=== PATIENT | female | born 1985 | race Two or more races ===

== ENCOUNTER → 2021-12-29 | Emergency (ER) | payer OTHER ==
[~2021-12-29] VITALS: Ht 167.6 cm; Wt 60.8 kg
[~2021-12-29] MED LIST: ANUSOL-HC30 G2 RECTAL; ANUSOL-HC30 G2 TOP; DULCOLAX STOOL100 M1 PO
== END | disposition home or self-care (01) ==
LOC: ER 08:21
DX: K62.5 Hemorrhage of anus and rectum (principal)

== ENCOUNTER 2023-03-23 10:38 | Emergency (ER) | payer OTHER ==
[~2023-03-23] VITALS: Ht 167.6 cm; Wt 59.0 kg
== END 2023-03-23 12:53 | disposition home or self-care (01) ==
LOC: ER 10:38
DX: J10.1 Influenza due to other identified influenza virus with other respiratory manifestations (principal); R53.81 Other malaise; Z20.822 Contact with and (suspected) exposure to COVID-19

== ENCOUNTER 2023-05-02 05:47 | Emergency (ER) | payer OTHER ==
[~2023-05-02] VITALS: Ht 167.6 cm; Wt 58.5 kg
[2023-05-02] MEDS ORDERED: KETOROLAC TROMETHAMINE 60 MG VIAL IM ONE (06:15)
== END 2023-05-02 06:19 | disposition home or self-care (01) ==
LOC: ER 05:47
DX: M94.0 Chondrocostal junction syndrome [Tietze] (principal)

== ENCOUNTER 2023-06-22 18:49 | Emergency (ER) | payer OTHER ==
[~2023-06-22] VITALS: Ht 167.6 cm; Wt 59.0 kg
[2023-06-22] MEDS ORDERED: GUAIFENESIN/DEXTROMETHORPHAN 100 MG/5 ML ML PO ONE (20:00)
[2023-06-22] MEDS ORDERED: DEXAMETHASONE SODIUM PHOSPHATE 4 MG/ML VIAL IM ONE (20:00)
[2023-06-22 20:26] LABS: HEMATOCRIT 34.1 % (36.0-45.00); HEMOGLOBIN 11.1 g/dL (12.0-15.00); MEAN CELL VOLUME 82.1 fL (80.00-100.00); MEAN CORPUSCULAR HEMOGLOBIN 26.6 pg (27.00-32.0); MEAN CORPUSCULAR HGB CONC 32.4 g/dl (32.0-36.0); PLATELET COUNT 348 K/uL (150-450); RED BLOOD COUNT 4.15 M/uL (4.00-6.00); RED CELL DISTRIBUTION WIDTH 14.4 % (11.5-14.5)
[2023-06-22] MEDS ORDERED: QC TUSSIN DM L118 ML PO (21:52)
[2023-06-22] MEDS ORDERED: BENZONATATE150 MG PO (21:52)
== END 2023-06-22 22:14 | disposition home or self-care (01) ==
LOC: ER 18:49
PROVIDERS: Nurse Practitioner Family
DX: J06.9 Acute upper respiratory infection, unspecified (principal)
CPT/HCPCS: 36415; 96372; 99282; J1100

== ENCOUNTER 2023-11-02 20:17 | Emergency (ER) | payer OTHER ==
[~2023-11-02] VITALS: Ht 167.6 cm; Wt 61.2 kg
[~2023-11-02 20:17] MED LIST changes: +BENZONATATE150 MG PO; +QC TUSSIN DM L118 ML PO
[2023-11-02] MEDS ORDERED: CETIRIZINE HCL 5 MG/5 ML ML PO STA (23:02)
[2023-11-02] MEDS ORDERED: GUAIFENESIN/DEXTROMETHORPHAN 5ML BLIST.PACK PO STA (23:03)
[2023-11-02] MEDS ORDERED: CETIRIZINE HCL 5MG/5ML BLIST.PACK PO ONE (23:35)
[2023-11-02] MEDS ORDERED: GUAIFENESIN/DEXTROMETHORPHAN 5ML BLIST.PACK PO ONE (23:35)
[2023-11-03] MEDS ORDERED: VENTOLIN HFA18 GM IH (03:05)
[2023-11-03] MEDS ORDERED: ZYNCOF 20-400120 ML PO (03:05)
== END 2023-11-03 03:55 ==
LOC: ER 20:19
DX: J06.9 Acute upper respiratory infection, unspecified (principal); Z20.822 Contact with and (suspected) exposure to COVID-19

== ENCOUNTER 2024-01-09 14:03 | Emergency (ER) | payer OTHER ==
[~2024-01-09] VITALS: Ht 167.6 cm; Wt 60.8 kg
[~2024-01-09 14:03] MED LIST changes: +VENTOLIN HFA18 GM IH; +ZYNCOF 20-400120 ML PO
[2024-01-09] MEDS ORDERED: TRAMADOL HCL 50 MG TABLET PO STA (16:33)
== END 2024-01-09 20:51 | disposition home or self-care (01) ==
LOC: ER 14:05
DX: S52.122A Displaced fracture of head of left radius, initial encounter for closed fracture (principal); W18.31XA Fall on same level due to stepping on an object, initial encounter; Y93.89 Activity, other specified; Y92.89 Other specified places as the place of occurrence of the external cause

== ENCOUNTER 2024-01-20 12:22 | Emergency (ER) | payer OTHER ==
[~2024-01-20] VITALS: Ht 167.6 cm; Wt 60.3 kg
[2024-01-20 12:46] VITALS: BP 104/66; O2SAT 99
[2024-01-20] MEDS ORDERED: KETOROLAC TROMETHAMINE 60 MG VIAL IM ONE (13:00)
[2024-01-20 14:47] LABS: ABG PH 7.445 (7.35-7.45); ABG PO2 92.2 mmHg (80-100); ABG pCO2 37.7 mmHg (35-45); BASE EXCESS 1.5 mmol/l; BICARBONATE 25.3 mmol/l (23-25); SaO2 97.5 %; Tco2 26.5 mmol/l; allen test SATISFACTORY; o2 21 %; puncture site RADIAL RIGHT
[2024-01-20 14:49] LABS: HEMOGLOBIN 11.1 g/dL (12.0-15.00); MEAN CELL VOLUME 84.4 fL (80.00-100.00); MEAN CORPUSCULAR HEMOGLOBIN 26.8 pg (27.00-32.0); MEAN CORPUSCULAR HGB CONC 31.7 g/dl (32.0-36.0); PLATELET COUNT 357 K/uL (150-450); RED BLOOD COUNT 4.14 M/uL (4.00-6.00); RED CELL DISTRIBUTION WIDTH 14.6 % (11.5-14.5)
[2024-01-20 15:32] LABS: ALBUMIN 3.7 gm/dL (3.4-5.0); BILIRUBIN TOTAL 0.55 mg/dL (0.3-1.2); CALCIUM 9.3 mg/dL (8.5-10.1); CREATININE SERUM 0.83 mg/dL (0.55-1.02); GFR 77.35; GLOBULINA 3.3 G/DL (2.4-3.5); POTASSIUM 4.04 mEq/L (3.5-5.1)
[2024-01-20] MEDS ORDERED: KETO10TA2 PO (15:43)
== END 2024-01-20 15:51 | disposition home or self-care (01) ==
LOC: ER 12:24
PROVIDERS: General Practice
DX: M94.0 Chondrocostal junction syndrome [Tietze] (principal); Z20.822 Contact with and (suspected) exposure to COVID-19

== ENCOUNTER 2024-11-01 21:50 | Emergency (ER) | payer OTHER ==
[~2024-11-01] VITALS: Ht 167.6 cm; Wt 61.2 kg
[~2024-11-01 21:50] MED LIST changes: +KETO10TA2 PO
[2024-11-01] MEDS ORDERED: KETOROLAC TROMETHAMINE 30 MG VIAL IM STA (22:42)
[2024-11-01 22:49] VITALS: BP 100/60; O2SAT 100
== END 2024-11-01 22:50 | disposition home or self-care (01) ==
LOC: ER 21:56
DX: M94.0 Chondrocostal junction syndrome [Tietze] (principal)